=== PATIENT | female | born 1955 | race Caucasian/White ===

== ENCOUNTER 2021-05-05 15:36 | Outpatient (CLI) | payer OTHER, SELFPAY ==
--- NOTE | 2021-05-05 15:57 | XR_ITS ---
WS: [id number] XR elbow RT min 3V* [id number] REASON FOR EXAM: Elbow pain after trauma FINDINGS: No joint effusion. No fracture identified. Joint spaces of the right elbow are intact with normal alignment of the radius, ulna, and humerus. No soft tissue abnormality. XR/XR elbow RT min 3V* [id number] IMPRESSION: No acute abnormality identified.
== END 2021-05-05 15:37 | disposition home or self-care (01) ==
PROVIDERS: PCP Nurse Practitioner Family; Visit Provider Nurse Practitioner Family
DX: M25.521 Pain in right elbow (principal)
CPT/HCPCS: 73080

== ENCOUNTER 2021-08-15 17:01 | Emergency (ER) | payer OTHER, SELFPAY ==
[2021-08-15 17:15] VITALS: BP 178/90; PULSE 77; RESP 18; TEMP 36.6; O2SAT 96; BMI 38.2
--- NOTE | 2021-08-15 17:22 | ED_ITS ---
HPI - Skin/Abscess/Foreign Bdy General: Chief complaint: Skin/Abscess/Foreign Body Stated complaint: rash on right foot bottom Time Seen by Provider: 08/15/21 17:21 History of Present Illness: 65-year-old female comes in today with a rash to the right sole of the foot. Patient was evaluated yesterday and started on antibiotics for concern of infection. The rash is pustular. Patient was placed on Bactrim and mupirocin ointment. Patient denies any fever, chills, nausea vomiting or significant pain. Patient has a history of cognitive decline, arthritis. Patient reports no similar rashes. Associated symptoms: Deny chills, fever(s), nausea or vomiting Review of Systems General: Reports: 10 or more systems reviewed and unremarkable except in HPI and below Const: Denies: fever(s) or chills Card: Denies: chest pain Resp: Denies: dyspnea GI: Denies: nausea or vomiting Skin/Breast: Reports: rash PFSH ED PFSH: Medical History Elbow fracture Social History Smoking and tobacco status: never smoked Physical Exam Const: COMMON NORMALS: alert Resp: COMMON NORMALS: normal respiratory effort Cardio: COMMON NORMALS: regular rate RATE: regular rate Extremity: GENERAL: Yes normal exam except as noted RIGHT LOWER EXTREMITY: Yes foot & digits (Pustular lesions to the right medial ball of the foot) Right foot and digits: Yes inspection, Yes palpation and Yes ROM Neuro: SENSORIUM/ORIENTATION: Yes alert Skin: RASHES: rashes noted (Pustular lesions to the right ball of the foot spreading up to the first ) Course Vital Signs: Vital signs: Vital Signs Temperature 97.8 F 08/15/21 17:15 Pulse Rate 77 08/15/21 17:15 Respiratory Rate 18 08/15/21 17:15 Blood Pressure 178/90 08/15/21 17:15 Pulse Oximetry 96 08/15/21 17:15 MDM - Skin/Abscess/Foreign Bdy Medicial Decision Making 65-year-old female comes in today with complaints of a pustular rash to the right foot. Patient reports itching and tenderness to the rash. Patient was seen yesterday and started on antibiotics Bactrim and mupirocin ointment. Patient denies any systemic symptoms such as fever, nausea vomiting, or chills. Patient has no history of diabetes. On exam we note pustular rash to the ball of the foot of the first digit. Rash seems to spread into the distal part of the toe. Differential diagnosis includes dyshidrotic eczema, pustular psoriasis, contact dermatitis, herpes zoster, gout, folliculitis. I feel the patient probably more has a inflammatory reaction here such as pustular psoriasis, dyshidrotic eczema, or contact dermatitis. Of course patient has never had any of these similar type rashes which probably points more towards a herpes zoster. I discussed this with patient recommended may be some triamcinolone cream to see if that would help improvement of the rash. I recommended patient follow-up with dermatology for further evaluation and treatment. Patient's mother from a skin cancer and of course is concerned about that. I recommended biopsy with a production machine computer operator for further evaluation and treatment. Patient has a scheduled appointment for in the morning with her production machine computer operator and I strongly recommended her evaluated at that time. Patient agreed to plan and will use the cream as prescribed and follow-up. Discharge Plan Discharge Patient Disposition: Home Clinical Impression: Pustular rash Condition: Stable Prescriptions: New triamcinolone acetonide 0.1 % cream 1 applic topical BID Qty: 80 0RF No Action multivitamin Tablet 1 tab PO DAILY 0RF cholecalciferol (vitamin D3) 100 mcg (4,000 unit) tablet 100 mcg PO .5 TIMES A DAY 0RF lidocaine [Lidocaine Pain Relief] 4 % adhesive patch,medicated 2 patch topical DAILY PRN (Reason: pain) Qty: 10 0RF Rx Instructions: Apply to painful joint sulfamethoxazole-trimethoprim [Bactrim DS] 800-160 mg tablet 1 tab PO BID 7 Days Qty: 14 0RF mupirocin 2 % ointment 1 applic topical TID 7 Days Qty: 22 0RF meloxicam [Mobic] 15 mg tablet 15 mg PO DAILY Qty: 30 0RF diclofenac sodium [Voltaren Arthritis Pain] 1 % gel 2 g topical QID Qty: 100 0RF Rx Instructions: apply to single elbow, wrist or hand; for hand includes palm/fingers/back of hand Discharge Orders: Discharge ED (Routine); Ordered 08/15/21 Ordered By: Barry Flaherty Referrals: Alexander,Alessandra, ALTERATION SPECIALIST-C [Primary Care Provider] - Discharge Diet: Usual diet Discharge Activity: Increase activity as tolerated Patient Instructions: Dermatitis (ED) Activity Restrictions/Additional Instructions: Continue with antibiotics as prescribed. Use triamcinolone cream 1 application twice a day. Follow-up with your production machine computer operator at appointment in the morning and have them evaluate the lesions. Monitor for systemic symptoms such as high fever, nausea vomiting, or increasing swelling and redness to the foot and lower extremity. With the symptoms return to the ER for further treatment. Coding Level of Care Code ED Rubber Tubing Splicer for Angus Hastings
--- NOTE | 2021-08-15 17:44 | PC.NURSE ---
NOTIFIED PHARMACY OF NEED OF TRIAMCINOLONE. MALE STATED IT WOULD BE MADE AVAILABLE CAREN.
[2021-08-15] MEDS: triamcinolone 0.1% cream 15 gm 1 APPLIC TOPICAL (17:55)
== END 2021-08-15 18:11 | disposition home or self-care (01) ==
PROVIDERS: Emergency Provider Nurse Practitioner Family; PCP Nurse Practitioner Family
DX: R21 Rash and other nonspecific skin eruption (principal); L08.0 Pyoderma
CPT/HCPCS: 99283

== ENCOUNTER 2021-09-06 12:03 | Outpatient (CLI) | payer OTHER, SELFPAY ==
[2021-09-06 13:40] LABS: Chol HDL Ratio 3.27 mg/dL (0.0-4.40); Cholesterol 196 mg/dL (0-200); HDL Cholesterol 60 mg/dL (60-100); LDL Cholesterol Calculated 111 mg/dL (50-129); LDL HDL Ratio 1.85 RATIO (0.00-3.22); Thyroid Stimulating Hormone 2.12 uIU/mL (0.27-4.20); Triglycerides 127 mg/dL (0-150); Vitamin B12 591 pg/mL (232-1245)
== END 2021-09-06 12:04 | disposition home or self-care (01) ==
LOC: LAB 12:07
PROVIDERS: PCP Nurse Practitioner Family; Visit Provider Nurse Practitioner
DX: R41.89 Other symptoms and signs involving cognitive functions and awareness (principal)
CPT/HCPCS: 80061; 82607; 84443

== ENCOUNTER → 2022-08-01 15:19 | Outpatient (BNVA) | payer MEDICARE, SELFPAY | PROVIDERS: PCP Nurse Practitioner Family; Visit Provider Nurse Practitioner | DX: M79.601 Pain in right arm (principal) | CPT/HCPCS: 73090 ==

== ENCOUNTER 2022-09-05 16:52 | Emergency (ER) | payer MEDICARE, MEDICAID, SELFPAY ==
[2022-09-05 16:58] VITALS: BP 142/77; PULSE 107; RESP 17; TEMP 37.8; O2SAT 95; BMI 26.7
[2022-09-05 17:27] VITALS: BP 158/88; PULSE 102; RESP 14; O2SAT 94
--- NOTE | 2022-09-05 17:31 | CTR_ITS ---
PROCEDURE INFORMATION: Exam: CT Abdomen And Pelvis With Contrast Exam date and time: 09/05/2022 6:40 PM Age: 66 years old Clinical indication: Abdominal pain; Generalized; Additional info: Abd pain TECHNIQUE: Imaging protocol: Computed tomography of the abdomen and pelvis with contrast. Radiation optimization: All CT scans at this facility use at least one of these dose optimization techniques: automated exposure control; mA and/or kV adjustment per patient size (includes targeted exams where dose is matched to clinical indication); or iterative reconstruction. Contrast material: OMNI 350; Contrast volume: 100 ml; Contrast route: INTRAVENOUS (IV); REPORTING DATA: Count of CT and Cardiac NM exams in prior 12 months: This patient has received 0 known CTs and 0 known cardiac nuclear medicine studies in the 12 months prior to the current study. COMPARISON: No relevant prior studies available. RADIATION DOSE METRICS: Total DLP (mGy-cm): 1256 FINDINGS: Liver: Normal. No mass. Gallbladder and bile ducts: Normal. No calcified stones. No ductal dilation. Pancreas: Normal. No ductal dilation. Spleen: Normal. No splenomegaly. Adrenal glands: Normal. No mass. Kidneys and ureters: Normal. No hydronephrosis. Stomach and bowel: Unremarkable. No obstruction. No mucosal thickening. Appendix: The appendix is visualized and is normal. Intraperitoneal space: Unremarkable. No free air. No significant fluid collection. Vasculature: Unremarkable. No abdominal aortic aneurysm. Lymph nodes: Unremarkable. No enlarged lymph nodes. Urinary bladder: Unremarkable as visualized. Reproductive: Uterine fibroids. 3.5 cm mass along the posterior left distal vaginal wall. The ovaries appear normal. Bones/joints: Mild degenerative changes of the lumbar spine. No fracture. Soft tissues: Small fat containing umbilical hernia. CT/CT abdomen pelvis w con* [id number] IMPRESSION: 1. No acute findings. 2. 3.5 cm mass posterior to the distal left vaginal wall. This could represent an ectopic fibroid or endometrioma. Follow-up with dedicated transvaginal pelvic ultrasound recommended.
[2022-09-05] MEDS: sodium chloride 0.9% 1,000 ML 999 ML IV (17:41)
--- NOTE | 2022-09-05 17:43 | ECG_ITS ---
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 Measurements Intervals [place] Rate: 99 P: 50 [place]: 141 QRS: 47 QRSD: 85 T: 52 QT: 318 QTc: 408 Interpretive Statements SINUS RHYTHM No previous ECG available for comparison Electronically Signed On 09-05-2022 19:46:02 CDT by Kamlesh Luna M.D. [id number]
[2022-09-05 17:47] LABS: Basophils % 0.2 %; Eosinophils % 0.4 %; Hematocrit 42.1 % (37.0-47.0); Hemoglobin 13.4 g/dL (11.5-15.3); Lymphocytes # 1.1 10^3/uL (0.8-4.8); Lymphocytes % 10.2 %; Mean Corpuscular HGB Conc 31.8 g/dL (30.0-36.0); Mean Corpuscular Hemoglobin 28.8 pg (28.0-34.0); Mean Corpuscular Volume 90.5 fl (81-99); Mean Platelet Volume 9.5 fL (7.4-10.4); Monocytes # 0.7 10^3/uL (0.2-0.9); Monocytes % 6.5 %; Neutrophils # 9.18 10^3/uL (1.8-7.7); Neutrophils % 82.3 %; Nucleated Red Blood Cells % 0 %; Platelet Count 250 10^3/cmm (130-400); Red Blood Count 4.65 10^6/uL (4.1-5.3); Red Cell Distribution Width 14.3 % (12.1-15.1); White Blood Count 11.2 10^3/uL (4.0-10.0)
[2022-09-05 18:18] VITALS: BP 156/90; PULSE 107; RESP 16; O2SAT 91
[2022-09-05 18:19] LABS: Alkaline Phosphatase 79 U/L (35-105); Blood Urea Nitrogen 11 mg/dL (8-23); Calcium 8.4 mg/dL (8.5-10.5); Carbon Dioxide 22 mmol/L (22-29); Chloride 98 mmol/L (98-107); Glomerular Filtration Rate 100.3 mL/min (90-130); Glucose 97 mg/dL (65-115); Osmolality Calculated 273 mOsm/kg (285-295); Sodium 132 mmol/L (136-145); Total Bilirubin 0.7 mg/dL (0.15-1.2)
[2022-09-05 18:22] LABS: Anion Gap 15.9 (5-19); Potassium 3.9 mmol/L (3.5-5.1)
[2022-09-05 18:23] LABS: Alanine Aminotransferase 17 U/L (0-33); Aspartate Amino Transferase 20 U/L (0-32)
[2022-09-05 18:33] LABS: Add Urine Microscopic? NO; Charge for UA Resulting for Rev
[2022-09-05 18:36] LABS: Bilirubin Urine Neg (Negative); Blood Urine Neg (Negative); Glucose Urine UA Norm (Normal); Ketones Urine Negative (Negative); Leukocyte Esterase Urine Negative (Negative); Nitrate Urine Negative (Negative); Protein Urine Neg (Negative); Specific Gravity, Urine 1.015 (1.005-1.030); Urine Appearance Clear (CLEAR); Urine Color Yellow (Yellow); Urobilinogen Urine Norm (Negative); pH Urine 5 (5-7)
[2022-09-05] MEDS: iohexol 350 mg/mL 500 mL Btl (per mL) IV (18:49)
--- NOTE | 2022-09-05 18:59 | ED_ITS ---
HPI - GI Bleed General: Chief complaint: GI Bleed Stated complaint: black diarrhea two days Time Seen by Provider: 09/05/22 17:14 History of Present Illness: Patient presents to the ER with complaints of black diarrhea for the last 2 days. Patient did go see her PCP today and was sent over here for further evaluation and treatment. Patient is lightheaded has a headache and rates pain a 2 out of 10. Patient is taking frequent NSAIDs for arm pain. Patient is never had this before. Pain Consistency: constant Severity: mild Relieving factors: none Exacerbating factors: none Treatments Prior to Arrival: none Review of Systems General: Reports: 10 or more systems reviewed and unremarkable except in HPI and below PFSH ED PFSH: Medical History Elbow fracture Social History Smoking and tobacco status: current every day smoker Alcohol intake: never Substance/Drug Use: never Physical Exam Const: COMMON NORMALS: no acute distress, average body habitus, patient oriented x3, no limitations, healthy appearing, alert and well nourished HENMT: COMMON NORMALS: normocephalic, atraumatic, hearing grossly normal bilaterally, external ears normal and Normal nasal mucous membranes and turbinates present HEAD & SCALP: normocephalic and atraumatic NOSE: Normal nasal mucous membranes and turbinates present EXTERNAL EAR: Yes external ears normal Eye: COMMON NORMALS: Equal, round and reactive pupils present, EOMs intact bilaterally, conjunctivae normal and no scleral icterus CONJUNCTIVA: Yes conjunctivae normal PUPIL: Yes Equal, round and reactive pupils present Neck/C-Spine: COMMON NORMALS: full ROM, no lymphadenopathy, supple, no meningeal signs and no JVD Lymph: LYMPHATIC: no lymphadenopathy noted and no lymphedema noted Chest: COMMONS NORMALS: normal inspection of the chest and normal palpation of entire chest wall Resp: COMMON NORMALS: normal respiratory effort, No retractions, No use of accessory muscles and clear to auscultation bilaterally AUSCULTATION: clear to auscultation bilaterally Cardio: COMMON NORMALS: no JVD, regular rate, regular rhythm, S1 normal heart sound present, S2 normal heart sound present, No gallops present (Cardio), No clicks present (Cardio), No murmurs present (Cardio) and No rub (Cardio) RATE: regular rate RHYTHM: regular rhythm HEART SOUNDS: S1 normal heart sound present and S2 normal heart sound present GI: COMMON NORMALS: Normal to inspection, nondistended, normoactive bowel sounds present, Soft to palpation, non-tender, No hepatosplenomegaly present and no masses PALPATION: Yes Soft to palpation and Yes No hepatosplenomegaly present : COMMON NORMALS: Yes no CVA tenderness BLADDER/KIDNEY EXAM: Yes no CVA tenderness Back/Pelvis: COMMON NORMALS: no CVA tenderness Neuro: COMMON NORMALS: patient oriented x3 SENSORIUM/ORIENTATION: Yes alert MENINGEAL SIGNS: Yes no meningeal signs Course Vital Signs: Vital signs: Vital Signs Temperature 100.1 F H 09/05/22 16:58 Pulse Rate 107 H 09/05/22 18:18 Respiratory Rate 16 09/05/22 18:18 Blood Pressure 156/90 09/05/22 18:18 Pulse Oximetry 91 09/05/22 18:18 Oxygen Delivery Me thod Room Air 09/05/22 18:18 MDM - GI Bleed Medical Decision Making Patient presents to the ER with complaints of black diarrhea-like stools since yesterday. She is also having lower abdominal pain. Lab work was obtained as well as a CT scan of the abdomen pelvis lab work was essentially benign. Showed a hemoglobin of 13.4 hematocrit 42.1, CT of the abdomen showed no acute findings but did show a 3.5 cm mass posterior to the distal left vaginal wall that could represent a fibroid or endometrioma. Patient will be instructed to take Pepcid twice a day for the next 2 weeks and to follow-up with her primary care physicia n as she may benefit from a transvaginal pelvic ultrasound, referral to DIRECTOR OF PURCHASING, and EGD. She will be instructed to not take any more NSAIDs or aspirin until further work-up is obtained. Differential Diagnosis Likely gastritis and Upper gastrointestinal hemorrhage; Unlikely hemorrhoids, infectious diarrhea, esophageal varices, Wedny-Castanon syndrome, Lower bety rointestinal hemorrhage, hematochezia, melena or anal fissure Medical Records I reviewed the patient's medical records. Lab Data I reviewed the patient's lab results. 09/05/22 17:38 09/05/22 17:38 Radiology Impressions Abdomen/Pelvis CT 09/05/22 17:31 IMPRESSION: 1. No acute findings. 2. 3.5 cm mass posterior to the distal left vaginal wall. This could represent an ectopic fibroid or endometrioma. Follow-up with dedicated transvaginal pelvic ultrasound recommended. Laboratory Results WBC 11.2 10^3/uL (4.0-10.0) H 09/05/22 17:38 RBC 4.65 10^6/uL (4.1-5.3) 09/05/22 17:38 Hgb 13.4 g/dL (11.5-15.3) 09/05/22 17:38 Hct 42.1 % (37.0-47.0) 09/05/22 17:38 MCV 90.5 fl (81-99) 09/05/22 17:38 MCH 28.8 pg (28.0-34.0) 09/05/22 17:38 MCHC 31.8 g/dL (30.0-36.0) 09/05/22 17:38 RDW 14.3 % (12.1-15.1) 09/05/22 17:38 Plt Count 250 10^3/cmm (130-400) 09/05/22 17:38 MPV 9.5 fL (7.4-10.4) 09/05/22 17:38 Neut % (Auto) 82.3 % 09/05/22 17:38 Lymph % (Auto) 10.2 % 09/05/22 17:38 [place] % (Auto) 6.5 % 09/05/22 17:38 Eos % (Auto) 0.4 % 09/05/22 17:38 Baso % (Auto) 0.2 % 09/05/22 17:38 Neut # (Auto) 9.18 10^3/uL (1.8-7.7) H 09/05/22 17:38 Lymph # (Auto) 1.1 10^3/uL (0.8-4.8) 09/05/22 17:38 [place] # (Auto) 0.7 10^3/uL (0.2-0.9) 09/05/22 17:38 Eos # (Auto) 0.0 10^3/uL (0.0-0.8) 09/05/22 17:38 Baso # (Auto) 0.0 10^3/uL (0.0-0.1) 09/05/22 17:38 Nucleated RBC % (auto) 0 % 09/05/22 17:38 Nucleated RBCs # 0.0 /100WBC 09/05/22 17:38 Sodium 132 mmol/L (136-145) L 09/05/22 17:38 Potassium 3.9 mmol/L (3.5-5.1) 09/05/22 17:38 Chloride 98 mmol/L (98-107) 09/05/22 17:38 Carbon Dioxide 22 mmol/L (22-29) 09/05/22 17:38 Anion Gap 15.9 (5-19) 09/05/22 17:38 BUN 11 mg/dL (8-23) 09/05/22 17:38 Creatinine 0.6 mg/dL (0.5-0.9) 09/05/22 17:38 GFR Calculation 100.3 mL/min (90-130) 09/05/22 17:38 Glucose 97 mg/dL (65-115) 09/05/22 17:38 Calculated Osmolality 273 mOsm/kg (285-295) L 09/05/22 17:38 Calcium 8.4 mg/dL (8.5-10.5) L 09/05/22 17:38 Total Bilirubin 0.7 mg/dL (0.15-1.2) 09/05/22 17:38 AST 20 U/L (0-32) 09/05/22 17:38 ALT 17 U/L (0-33) 09/05/22 17:38 Alkaline Phosphatase 79 U/L (35-105) 09/05/22 17:38 Total Protein 7.0 g/dL (6.6-8.7) 09/05/22 17:38 Albumin 4.0 g/dL (3.5-5.2) 09/05/22 17:38 Globulin 3.0 g/dL (1.3-4.6) 09/05/22 17:38 Urine Color Yellow (Yellow) 09/05/22 18:15 Urine Appearance Clear (CLEAR) 09/05/22 18:15 Urine pH 5 (5-7) 09/05/22 18:15 Ur Specific [place] 1.015 (1.005-1.030) 09/05/22 18:15 Urine Protein Neg (Negative) 09/05/22 18:15 Urine Glucose (UA) Norm (Normal) 09/05/22 18:15 Urine Ketones Negative (Negative) 09/05/22 18:15 Urine Blood Neg (Negative) 09/05/22 18:15 Urine Nitrate Negative (Negative) 09/05/22 18:15 Urine Bilirubin Neg (Negative) 09/05/22 18:15 Urine Urobilinogen Norm mg/dL (Negative) 09/05/22 18:15 Ur Leukocyte Esterase Negative (Negative) 09/05/22 18:15 Discharge Plan Discharge Patient Disposition: Home Clinical Impression: Upper gastrointestinal hemorrhage, Fibroid Gastritis Qualifiers: Gastritis type: unspecified gastritis Chronicity: acute Gastritis bleeding: with bleeding Qualified Code(s): K29.01 - Acute gastritis with bleeding Condition: Stable Prescriptions: New Pepcid 40 mg tablet 40 mg PO Q12H Qty: 60 0RF No Action multivitamin Tablet 1 tab PO DAILY cholecalciferol (vitamin D3) 100 mcg (4,000 unit) tablet 100 mcg PO .5 TIMES A DAY ascorbic acid (vitamin C) 500 mg capsule PO omega-3 fatty acids 500 mg capsule 500 mg PO DAILY cetirizine [Zyrtec] 10 mg tablet 10 mg PO DAILY Qty: 60 0RF Discharge Orders: Discharge ED (Routine); Ordered 09/05/22 Ordered By: Luciano Parikh Referrals: Debra Feldman MD [Primary Care Provider] - 7-10 days Patient Instructions: Fibroids, Gastritis (ED), Gastrointestinal Bleeding (ED) Activity Restrictions/Additional Instructions: Please take the Pepcid twice a day as directed. Please follow-up with your primary care practitioner as you may benefit from further work-up including ultrasound and/or EGD. Coding Level of Care Code ED Bike Designer for Chg Venkata
[2022-09-05 20:11] VITALS: BP 150/92; PULSE 91; RESP 17; O2SAT 98
== END 2022-09-05 20:12 | disposition home or self-care (01) ==
PROVIDERS: Family Medicine; Emergency Provider Emergency Medicine; PCP Family Medicine
DX: K92.2 Gastrointestinal hemorrhage, unspecified (principal); D25.9 Leiomyoma of uterus, unspecified
CPT/HCPCS: 74177; 80053; 81003; 85025; 93005; 96360; 96361; 99285; J7030; Q9967

== ENCOUNTER → 2022-09-19 14:58 | Outpatient (BNVA) | payer MEDICARE, MEDICAID, SELFPAY | PROVIDERS: PCP Family Medicine; Visit Provider Registered Nurse Neonatal Intensive Care | DX: J02.9 Acute pharyngitis, unspecified (principal) | CPT/HCPCS: 87880 ==

== ENCOUNTER → 2022-09-21 07:44 | Outpatient (BNVA) | payer MEDICARE, MEDICAID, SELFPAY | PROVIDERS: PCP Family Medicine; Visit Provider Family Medicine | DX: R79.89 Other specified abnormal findings of blood chemistry (principal) | CPT/HCPCS: 82306 ==

== ENCOUNTER 2022-10-04 13:06 | Outpatient (CLI) | payer MEDICARE, MEDICAID, SELFPAY ==
--- NOTE | 2022-10-04 14:00 | US_ITS ---
WS: [id number] Pelvic ultrasound, 10/04/2022 Clinical Data: f/u for abnormal ct - vaginal mass Comparison: CT abdomen and pelvis, 09/05/2022 Findings: The uterus measures 8.2 cm x 4.5 cm x 4.1 cm. The endometrium is 0.5 cm. No intrauterine or abnormal intrauterine mass is seen. There is a soft tissue mass in the left adnexa which measures 1.96 x 2.70 x 3.01 cm. There is a well- defined smooth border and the interior of the mass shows heterogeneous echotexture.The ovaries were n ot imaged. There is no fluid in the cul-de-sac. US/US transvaginal [id number] Impression: Nonspecific 3.01 cm mass in the left adnexa could represent an endometrioma, ec topic ovarian tissue and other soft tissue abnormalities.
== END 2022-10-04 13:07 | disposition home or self-care (01) ==
LOC: RAD 13:09
PROVIDERS: PCP Family Medicine; Visit Provider Family Medicine
DX: N89.8 Other specified noninflammatory disorders of vagina (principal); N83.8 Other noninflammatory disorders of ovary, fallopian tube and broad ligament
CPT/HCPCS: 76830

== ENCOUNTER 2022-10-11 07:58 | Outpatient (CLI) | payer MEDICARE, MEDICAID, SELFPAY ==
--- NOTE | 2022-10-11 08:00 | MR_ITS ---
WS: [id number] MRI HEAD WITHOUT AND WITH GADOLINIUM ENHANCEMENT WITH PITUITARY PROTOCOL. TECHNIQUE: Sagittal T1, T2 axial, T2 axial FLAIR, axial susceptibility weighted imaging, axial diffus ion weighted images, and coronal T2 images were obtained. Pre and post-T1 axial and post T1 coronal i mages. ADC and FSPGR images. Post gadolinium imaging was obtained with attention to the pituitary. Hi gh-resolution pituitary imaging with dynamic pituitary protocol CLINICAL INFORMATION: pituitary microadenoma COMPARISON: MRI head 01/02/21 FINDINGS: Previously described possible microadenoma in the pituitary is not seen today. No hypoenhancing lesio ns on the dynamic pituitary imaging. No evidence of sellar or suprasellar lesion. Normal optic chiasm and pituitary infundibulum. No restricted diffusion to suggest acute ischemia. Mild small vessel changes. No significant parenchy mal volume loss. Normal posterior fossa. Normal vascular flow voids at the skull base. No extra-axial fluid collections. No evidence of mass or mass effect. Normal posterior nasopharynx and parapharynge al fat. No hemosiderin on the susceptibly weighted imaging. No abnormal gadolinium enhancement. Normal dural venous sinuses. MR/MR pituitary wo/w con* [id number] IMPRESSION: 1. Pituitary is normal in appearance. No evidence of microadenoma. 2. Normal optic chiasm and pituitary infundibulum. 3. No evidence of sellar or suprasellar mass. 4. Mild small vessel changes appear stable compared to 2020. No significant pa renchymal volume loss. 5. No hemosiderin on susceptibly weighted images. 6. No other suspicious findings.
[2022-10-11] MEDS: gadobenate dimeglumine 20 mL vial IV (08:56)
== END 2022-10-11 07:59 | disposition home or self-care (01) ==
PROVIDERS: PCP Family Medicine; Visit Provider Family Medicine
DX: D35.2 Benign neoplasm of pituitary gland (principal); L57.0 Actinic keratosis; N64.52 Nipple discharge; L81.4 Other melanin hyperpigmentation; D22.5 Melanocytic nevi of trunk; L85.3 Xerosis cutis; L82.1 Other seborrheic keratosis; L72.0 Epidermal cyst; L91.8 Other hypertrophic disorders of the skin; Z80.8 Family history of malignant neoplasm of other organs or systems; Z85.828 Personal history of other malignant neoplasm of skin; L57.8 Other skin changes due to chronic exposure to nonionizing radiation
CPT/HCPCS: 11200; 17000; 17003; 70553; 99213; A9577

== ENCOUNTER → 2022-10-19 10:19 | Outpatient (BNVA) | payer MEDICARE, MEDICAID, SELFPAY | PROVIDERS: PCP Family Medicine; Visit Provider Surgery | DX: K92.1 Melena (principal) | CPT/HCPCS: 99203 ==

== ENCOUNTER 2022-10-26 12:43 | Outpatient (CLI) | payer MEDICARE, MEDICAID, SELFPAY ==
[2022-10-26 14:12] LABS: Prolactin 6.33 ng/mL (4.8-23.3)
== END 2022-10-26 12:44 | disposition home or self-care (01) ==
LOC: LAB 12:47
PROVIDERS: Obstetrics & Gynecology; PCP Family Medicine; Visit Provider Family Medicine
DX: E27.8 Other specified disorders of adrenal gland (principal); N89.8 Other specified noninflammatory disorders of vagina
CPT/HCPCS: 84146

== ENCOUNTER 2022-10-30 07:22 | Outpatient (CLI) | payer MEDICARE, MEDICAID, SELFPAY ==
--- NOTE | 2022-10-30 07:15 | MRR_ITS ---
PROCEDURE INFORMATION: Exam: MR Pelvis Without and With Contrast; Uterus and Adnexa Exam date and time: 10/30/2022 7:42 AM Age: 66 years old Clinical indication: Abnormal findings; Abnormal imaging test; Patient HX: 3.5 cm mass posterior to the distal left vaginal wall. This could. Represent an ectopic fibroid or endometrioma. Seen on a CT done on 09-05-22/ no pain/symptoms; Additional info: R19.00 - intra-abdominal and pelvic swelling, mass and ephraim. . . TECHNIQUE: Imaging protocol: Magnetic resonance imaging of the pelvis without and with contrast. Exam focused on the uterus and adnexa. Contrast material: MULTIHANCE; Contrast volume: 20 ml; Contrast route: INTRAVENOUS (IV); COMPARISON: CT abdomen pelvis w con* [id number] 09/05/2022 6:40 PM FINDINGS: Uterus: There is also an intramural fibroid in the left aspect of the uterine body measuring up to 1.9 cm. Cervix: A mass measuring 2.7 x 3.1 x 3.0 cm arising from the left posterior aspect of the cervix appears most consistent with a fibroid. Right ovary/adnexa: Ovary is normal in size. Normal follicles. Left ovary/adnexa: Ovary is normal in size. Normal follicles. Intraperitoneal space: No free fluid. Soft tissues: Unremarkable. MR/MR pelvis wo/w con [id number] IMPRESSION: A mass measuring 2.7 x 3.1 x 3.0 cm arising from the left posterior aspect of the cervix appears most consistent with a fibroid.
[2022-10-30] MEDS: gadobenate dimeglumine 20 mL vial IV (08:26)
== END 2022-10-30 07:23 | disposition home or self-care (01) ==
PROVIDERS: PCP Family Medicine; Visit Provider Obstetrics & Gynecology
DX: R19.00 Intra-abdominal and pelvic swelling, mass and lump, unspecified site (principal); D25.9 Leiomyoma of uterus, unspecified
CPT/HCPCS: 72197; A9577

== ENCOUNTER → 2022-11-02 11:45 | Outpatient (BNVA) | payer MEDICARE, MEDICAID, SELFPAY | PROVIDERS: PCP Family Medicine; Visit Provider Dermatology | DX: L85.8 Other specified epidermal thickening (principal); L72.0 Epidermal cyst; L81.4 Other melanin hyperpigmentation; L82.1 Other seborrheic keratosis; L73.8 Other specified follicular disorders; Z08 Encounter for follow-up examination after completed treatment for malignant neoplasm; Z85.828 Personal history of other malignant neoplasm of skin; L82.0 Inflamed seborrheic keratosis; L53.8 Other specified erythematous conditions; L29.8 Other pruritus | CPT/HCPCS: 17110; 99213 ==

== ENCOUNTER → 2023-04-18 11:05 | Outpatient (BNVA) | payer MEDICARE, SELFPAY | PROVIDERS: PCP Family Medicine; Visit Provider Dermatology | DX: L82.0 Inflamed seborrheic keratosis (principal); L81.4 Other melanin hyperpigmentation; L91.8 Other hypertrophic disorders of the skin; L72.0 Epidermal cyst; L73.8 Other specified follicular disorders; D18.01 Hemangioma of skin and subcutaneous tissue; Z85.828 Personal history of other malignant neoplasm of skin | CPT/HCPCS: 11200; 17110; 99213 ==

== ENCOUNTER → 2023-05-28 16:18 | Outpatient (BNVA) | payer MEDICARE, SELFPAY | PROVIDERS: PCP Family Medicine; Visit Provider Registered Nurse Neonatal Intensive Care | DX: B82.0 Intestinal helminthiasis, unspecified (principal) | CPT/HCPCS: 87177; 87209 ==

== ENCOUNTER → 2024-07-07 15:20 | Outpatient (BNVA) | payer MEDICARE, SELFPAY | PROVIDERS: PCP Family Medicine; Visit Provider Nurse Practitioner Family | DX: L73.8 Other specified follicular disorders (principal); L72.0 Epidermal cyst; L57.8 Other skin changes due to chronic exposure to nonionizing radiation; L81.4 Other melanin hyperpigmentation; D22.5 Melanocytic nevi of trunk; L82.0 Inflamed seborrheic keratosis; Z78.9 Other specified health status; R20.8 Other disturbances of skin sensation; R58 Hemorrhage, not elsewhere classified; L53.8 Other specified erythematous conditions; D48.5 Neoplasm of uncertain behavior of skin | CPT/HCPCS: 17110; 99213 ==